=== PATIENT | female | born 1990 | race Caucasian/White ===

== ENCOUNTER 2024-09-02 14:02 | Emergency (ER) | payer OTHER ==
[~2024-09-02] VITALS: Ht 165.1 cm; Wt 72.6 kg
[2024-09-02 15:49] VITALS: BP 128/70; O2SAT 98
== END 2024-09-02 15:50 | disposition home or self-care (01) ==
LOC: ER 14:02
DX: M23.91 Unspecified internal derangement of right knee (principal)
CPT/HCPCS: A4606; A4663